=== PATIENT | male | born 2000 | race Hispanic/Latino ===

== ENCOUNTER 2025-04-05 09:51 | Emergency (ER) | payer SELFPAY ==
[~2025-04-05] VITALS: Ht 172.7 cm; Wt 54.4 kg
--- NOTE | 2025-04-05 10:25 | ERN ---
ED Note History of Present Illness Stated Complaint: ABD PAIN Chief Complaint: Abdominal Pain Time Seen by MD: 10:14 Time Seen by Midlevel: 10:15 Dictation: 24-year-old male coming in with complaints of epigastric pain onset this morning. Patient denies having any fever, vomiting or diarrhea. Denies having any medical problems or surgical history. Allergies: Coded Allergies: No Known Drug Allergies (Unverified Allergy, Unknown, 04/05/25) Past Medical History Past Medical History: Liver Disease Surgical History: Appendectomy Surgical History Other: NASAL SX Review of System Dictation Constitutional: Negative for fever,chills, and weight loss Eyes: Negative for injury, pain,redness, and discharge ENT: Negative for injury,pain or swelling Cardiovascular: Negative for chest pain, palpitations, and edema Respiratory: Negative for shortness of breath, cough, and wheezing, Abdomen/GI: Epigastric pain with nausea Back: Negative for injury and pain : Negative for injury, bleeding and discharge MS/Extremity: Negative for injury and deformity Skin: Negative for rash, and discoloration Neuro: Negative for headache, weakness, numbness, tingling, and seizure Psych: Negative for suicide ideation, homicidal ideation, and hallucinations Review of Systems: was completed Initial Vital Sign VS Vital Signs Date Time Temp Pulse Resp B/P (MAP) Pulse Ox O2 Delivery O2 Flow Rate FiO2 04/05/25 09:59 98.1 66 16 112/72 99 0 04/05/25 10:13 Room Air* 21 Physical Exam Dictation General: awake, alert, NAD Head/Face: Normocephalic, atraumatic Eyes: PERRL, EOMI, vision at baseline ENT: oral cavity clear, TMs clear, no signs of infection Neck: Trachea midline, supple, no nuchal rigidity Cardiovascular: RRR, normal S1/S2, No MRGs, no JVD Respiratory: CTAB, no respiratory distress, No rales or wheezes Abdomen: Soft, non-tender, non-distended, normal bowel sounds, no guarding or rebound. Skin: Warm, dry, normal turgor, no rash MS/Extremity: Pulses equal, no cyanosis, neurovascular intact, FROM Neuro: COAx4, GCS 15, strength 5/5, CN 2-12 intact, normal cerebellar exam, normal gait, Psych: Normal behavior, mood, and affect normal Results (Laboratory/Radiology) Laboratory/Radiology Laboratory Tests Test 04/05/25 10:23 White Blood Count 6.0 K/uL (4.8-10.8) Red Blood Count 4.60 MIL/uL (4.50-6.20) Hemoglobin 14.5 g/dL (14.0-18.0) Hematocrit 41.6 % (42-54) L Mean Corpuscular Volume 90.4 fL (79-99) Mean Corpuscular Hemoglobin 31.5 pg (27.0-33.0) Mean Corpuscular Hemoglobin Concent 34.9 g/dL (32.0-36.0) Red Cell Distribution Width 11.8 % (11.0-15.5) Platelet Count 239 K/uL (130-400) Mean Platelet Volume 9.8 fL (7.5-10.5) Immature Granulocyte % (Auto) 0.5 % (0-1) Neutrophils (%) (Auto) 59.9 % (40.0-77.0) Lymphocytes (%) (Auto) 30.6 % (21.0-51.0) Monocytes (%) (Auto) 6.5 % (3.0-13.0) Eosinophils (%) (Auto) 1.5 % (0.0-8.0) Basophils (%) (Auto) 1.0 % (0.0-5.0) Neutrophils # (Auto) 3.6 K/uL (1.8-7.7) Lymphocytes # (Auto) 1.9 K/uL (1.0-4.8) Monocytes # (Auto) 0.4 K/uL (0.1-1.0) Eosinophils # (Auto) 0.09 K/uL (0.00-0.70) Basophils # (Auto) 0.06 K/uL (0.00-0.20) Absolute Immature Granulocyte (auto 0.03 K/uL (0-1) Nucleated Red Blood Cells 0.0 % (0.0-0.19) Sodium Level 144 mmol/L (136-145) Potassium Level 4.0 mmol/L (3.5-5.1) Chloride Level 105 mmol/L (101-111) Carbon Dioxide Level 28 mmol/L (21-32) Blood Urea Nitrogen 17 mg/dL (7-18) Creatinine 0.8 mg/dL (0.5-1.3) Glomerular Filtration Rate Calc 125 mL/min (>90) Random Glucose 98 mg/dL (70-105) Total Calcium 9.3 mg/dL (8.5-10.1) Total Bilirubin 1.2 mg/dL (0.2-1.0) H Direct Bilirubin 0.2 mg/dL (0.0-0.3) Aspartate Amino Transf (AST/SGOT) 18 U/L (10-37) Alanine Aminotransferase (ALT/SGPT) 22 U/L (12-78) Alkaline Phosphatase 113 U/L (50-136) Total Protein 7.7 g/dL (6.0-8.3) Albumin 4.5 g/dL (3.5-5.0) Lipase 31 U/L (16-77) ED Course ED Course Orders Procedure Category Date Status Time Cbc With Differential LAB 04/05/25 Complete 10:13 Basic Metabolic Panel LAB 04/05/25 Complete 10:13 Lipase LAB 04/05/25 Complete 10:13 Hepatic Function Panel LAB 04/05/25 Complete 10:13 Ondansetron Odt 4mg PHA 04/05/25 Complete Tab (Zofran 4mg Odt) 10:13 Lidocaine Hcl 2% PHA 04/05/25 Complete Viscous (Lidocaine Hcl 10:30 Mag/Alum/Simeth 30ml PHA 04/05/25 Complete (Maalox Plus 30ml) 10:30 Dicyclomine Hcl PHA 04/05/25 Complete (Bentyl 10mg/5ml 10:30 Current Medications Medications (Trade) Dose Ordered Sig/Farnaz Route PRN Reason Start Time Stop Time Status Last Admin Dose Admin Al Hydroxide/Mg Hydroxide (MAALox PLUS 30ML) 30 ml ONCE ONCE PO 04/05/25 10:30 04/05/25 10:31 DC 04/05/25 10:33 Dicyclomine HCl (Bentyl 10mg/5ml Syrup) 10 mg ONCE ONCE PO 04/05/25 10:30 04/05/25 10:31 DC 04/05/25 10:33 Lidocaine HCl (Lidocaine HCl 2% Viscous) 10 ml ONCE ONCE PO 04/05/25 10:30 04/05/25 10:31 DC 04/05/25 10:33 Ondansetron HCl (zoFRAN 4MG ODT) 4 mg ONCE STAT SL 04/05/25 10:13 04/05/25 10:17 DC 04/05/25 10:33 Vital Signs Date Time Temp Pulse Resp B/P (MAP) Pulse Ox O2 Delivery O2 Flow Rate FiO2 04/05/25 10:13 98.1 51 18 111/74 99 Room Air* 0 21 04/05/25 09:59 98.1 66 16 112/72 99 0 Medical Decision Making MDM MDM: 24-year-old male coming in with complaints of epigastric pain onset this morning. Patient denies having any fever, vomiting or diarrhea. Denies having any medical problems or surgical history. Unremarkable. Patient states he feels better after medication. Educated patient that most likely his symptoms could be related to gastritis or PUD or H pylori however the he needs to follow up with PCP and have to be evaluated further. Patient verbalized understanding, answered all questions. Differential diagnosis: Pancreatitis, gastritis, PUD Rationale: Tests considered and ordered secondary to shared decision making include: Previous outside records reviewed: Old ER visits. Risk of complication and/or morbidity or mortality of patient management: None Medications-Per medication reconciliation Need for hospitalization: Patient does not meet criteria for hospitalization. Need for emergency major/minor surgery: No There are no social concerns with this patient. Prescription drug management Prescriptions will include symptomatic care Patient's prior external medical records from other ER visits were reviewed by me as indicated. Prior testing and results from previous visits were reviewed. Prior tests were taken into account with medical decision making and resource utilization, independent historian/historians were used to obtain complete medical history. I independently interpreted the test that were performed, results were reviewed by me and considered findings on radiology if ordered. Medical management and examination interpretation discussions were had by me with other qualified healthcare professionals as indicated for the patient's care. DX & DISP Disposition: Discharge Departure Impression: Primary Impression: Epigastric pain Condition: Stable Scripts Famotidine (Pepcid) 20 Mg Tablet 1 TAB PO BID for 30 Days, #60 TAB 0 Refills Prov: CABRERA GRANDA [employer] 04/05/25 Ondansetron (Ondansetron Odt) 4 Mg Tab.rapdis 1 TAB PO Q6HPRN PRN for nausea/vomiting for 3 Days, #12 TAB 0 Refills Prov: GRANDACABRERA [employer]ERIAL DISTRIBUTOR 04/05/25 Additional Instructions: Follow up with your primary doctor. Also follow up with the GI as you might need further evaluation. Return to the hospital if you have any worsening symptoms. Referrals: SELF,REFERRAL (PCP) Time of Disposition: 11:08 I have reviewed the case, and I agree with, Diagnosis and Plan CABRERA GRANDA NP Apr 05, 2025 10:25
[2025-04-05] MEDS: LIDOCAINE HCL 2% VISCOUS 15 ML UDCUP PO ONE (10:33)
[2025-04-05] MEDS: MAG/ALUM/SIMETH 30 ML UDCUP PO ONE (10:33)
[2025-04-05] MEDS: DICYCLOMINE HCL 10 MG/5 ML ML PO ONE (10:33)
[2025-04-05 10:35] LABS: IMMATURE GRANULOCYTE ABSOLUTE 0.03 K/uL (0-1); NUCLEATED RED BLOOD CELLS 0.0 % (0.0-0.19); PLATELET COUNT (AUTO) 239 K/uL (130-400); RED BLOOD CELL COUNT(AUTO) 4.60 MIL/uL (4.50-6.20); RED CELL DISTRIBUTION WIDTH 11.8 % (11.0-15.5); WHITE BLOOD COUNT (AUTO) 6.0 K/uL (4.8-10.8)
[2025-04-05 10:44] LABS: CREATININE 0.8 mg/dL (0.5-1.3); GLOMERULAR FILTR. RATE CALC 125.0 mL/min (>90); GLUCOSE,RANDOM 98.0 mg/dL (70-105); SODIUM SERUM 144.0 mmol/L (136-145); UREA NITROGEN, BLOOD 17.0 mg/dL (7-18)
[2025-04-05 10:48] LABS: ASPARTATE AMINOTRANSFERASE 18.0 U/L (10-37); TOTAL PROTEIN, SERUM 7.7 g/dL (6.0-8.3)
[2025-04-05] MEDS ORDERED: ONDA-243 PO (11:08)
[2025-04-05] MEDS ORDERED: FAMO-136 PO (11:08)
[2025-04-05 11:19] VITALS: BP 102/56; PULSE 63; RESP 18; TEMP 98.6; O2SAT 97
== END 2025-04-05 11:29 | disposition home or self-care (01) ==
LOC: EDH 09:51
DX: R10.13 Epigastric pain (principal); Z90.49 Acquired absence of other specified parts of digestive tract
CPT/HCPCS: 36415; 80048; 80076; 83690; 85025; 99284